=== PATIENT | male | born 1995 | race Hispanic/Latino ===

== ENCOUNTER 2019-01-21 11:34 | Emergency (ER) | payer BC ==
[2019-01-21 11:55] VITALS: RESP 16; O2SAT 100; BMI 26.5
--- NOTE | 2019-01-21 12:34 | ED PDOC ---
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 He states he was at [employer] working out when a medicine ball hit him the face. Patient states the ball bounced up and hit him and further reports that he did not bite his lips and the laceration occurred from just the ball hitting him in the area. According to patient's father, patient last tetanus shot was more than x5 years ago. Pt denies headache, LOC, changes in vision or other injuries PMD: Wan Sanders I Past Medical History Reviewed: Historical Data, Nursing Documentation, Vital Signs Vital Signs: Last Vital Signs Temp 97.6 F 01/21/19 11:54 Pulse 67 01/21/19 11:54 Resp 16 01/21/19 11:54 BP 130/77 01/21/19 11:54 Pulse Ox 100 01/21/19 11:54 Primary Care Provider: Wan Sanders I - Medical History PMH: Fractures (arm) - Surgical History Surgical History: No Surg Hx - Family History Family History: States: Unknown Family Hx - Allergies Allergies/Adverse Reactions: Allergies Allergy/AdvReac Type Severity Reaction Status Date / Time peanuts Allergy SWELLING Uncoded 01/21/19 11:56 Review of Systems ROS Statement: Except As Marked, All Systems Reviewed And Found Negative ENT: Positive for: Other (lip laceration ) Physical Exam - Reviewed Nursing Documentation Reviewed: Yes Vital Signs Reviewed: Yes - Physical Exam Appears: Positive for: Non-toxic, No Acute Distress Head Exam: Positive for: ATRAUMATIC, NORMOCEPHALIC Skin: Positive for: Normal Color, Warm, Dry Eye Exam: Positive for: Normal appearance, EOMI, PERRL ENT: Positive for: Other ((+) mucous membranes are intact; (+) inner smaller lip with an abrasian and outside of lower lip with a 1.5 cm superficial jagged laceration of vermilion lip (-) trysmus; dentition is intact ) - ECG O2 Sat by Pulse Oximetry: 100 (RA) Pulse Ox Interpretation: Normal Medical Decision Making Medical Decision Making: Time: 1230 Plan: --Tetanus 0.5 ml IM --Consult Dr. Lucas as per pt and family request for plastics preference due to location of lac Pt's father spoke to pt's mother who reports pt's tetanus is UTD last year, so will not give it here 18:40 laceration repair done by Dr. Lucas, recommends follow up in 1 week in his office Discussed diagnosis, treatment, return precautions and f/u with pt and parents who are understanding and in agreement, pt stable for dc Scribe Attestation: Documented by Maciel Fields, acting as a scribe for TIKI Castañeda. Provider Scribe Attestation: All medical record entries made by the Scribe were at my direction and personally dictated by me. I have reviewed the chart and agree that the record accurately reflects my personal performance of the history, physical exam, medical decision making, and the department course for this patient. I have also personally directed, reviewed, and agree with the discharge instructions and disposition. Disposition - Clinical Impression Clinical Impression: Laceration of lip - Patient ED Disposition Is Patient to be Admitted: No Counseled Patient/Family Regarding: Studies Performed, Diagnosis, Need For Followup - Disposition Referrals: Iglesia Lucas MD [Medical Doctor] - Disposition: Routine/Home Disposition Time: 18:49 Condition: STABLE Additional Instructions: Thank you for letting us take care of you today. Follow up with the doctor in 1 week. Keep wound clean and dry. The emergency medical care you received today was directed at your acute symptoms. If you were prescribed any medication, please fill it and take as directed. It may take several days for your symptoms to resolve. Return to the Emergency Department if your symptoms worsen, do not improve, or if you have any other problems. Please contact your doctor in 2 days for re-evaluation and follow up / or call one of the physicians/clinics you have been referred to that are listed on the Patient Visit Information form that is included in your discharge packet. Bring any paperwork you were given at discharge with you along with any medications you are taking to your follow up visit. Our treatment cannot replace ongoing medical care by a primary care provider (PCP) outside of the emergency department. Instructions: Wound Care, Laceration Repair With Stitches (DC) Print Language: KAZAKH - POA Present On Arrival: None
[2019-01-21 19:13] VITALS: BP 124/68; PULSE 72; TEMP 97.4
[2019-01-21] MEDS: Tdap Vaccine 0.5 ml Vial (10-64 yrs) IM ONE (19:14)
--- NOTE | 2019-01-23 03:35 | CON ---
DATE: 01/21/2019 EMERGENCY ROOM CONSULTATION SURGEON: Iglesia Lucas MD HISTORY OF PRESENT ILLNESS: This is a healthy 23-year-old male who hit his head and hit his lower lip while working out with some sort of ball at the gym. He sustained a 3-cm laceration to his lower lip across the vermilion border. The ER staffed consulted me as the plastic surgeon on-call for this complex wound. I came in to evaluate and treat the patient. PHYSICAL EXAMINATION: Central lower lip has a 3-cm laceration across the vermilion border involving the underlying orbicularis lindsey muscle. The intraoral mucosa had some contusion and mucosal lysis, but it was not [id number]. There were no other intraoral injuries, and his occlusion was normal. There were no signs of any facial fractures. ASSESSMENT AND PLAN: I explained to the patient and his parents there would be a scar and my job as a plastic surgeon was to minimize it. Risks and benefits were fully discussed, and all questions were answered. I will now dictate a separate operative report. Iglesia Lucas MD
--- NOTE | 2019-01-23 03:41 | OP ---
PROCEDURE DATE: 01/21/2019 PREOPERATIVE DIAGNOSIS: A 3-cm lower lip laceration across the vermilion border. POSTOPERATIVE DIAGNOSIS: A 3-cm lower lip laceration across the vermilion border. PROCEDURE PERFORMED: Complex repair of 3-cm central lower lip laceration across the vermilion border. SURGEON: Iglesia Lucas MD ANESTHESIA: Regional: 1. Left mental nerve block. 2. Right mental nerve block. INDICATIONS FOR THE PROCEDURE: As follows: Please refer to my separately dictated ER consultation for history and physical. DESCRIPTION OF PROCEDURE: As follows: Lidocaine 1% with 1:100,000 epinephrine was used in regional nerve block as listed above. After allowing sufficient time for the anesthetic to take effect, the wound was thoroughly irrigated with normal saline. Any retained debris was manually removed. The area was prepped and draped in the usual clean and sterile manner. I debrided the irregular skin edges with scissor technique. I used a 5-0 Monocryl to line up and approximate the orbicularis lindsey muscle in an interrupted fashion. I used a 5-0 Monocryl to line up and approximate the subcutaneous tissue and deep dermis in an interrupted fashion. I then closed the 3-cm laceration and lined up the vermilion border appropriately with a 6-0 Prolene in an interrupted fashion. After doing this, wound edges were nicely aligned. The patient tolerated the procedure well and eventually discharged home from the emergency room in stable condition. Postop wound care, limitation of physical activities, and the fact there will be a scar, the prognosis of which is unknown were discussed with the patient and his parents and all questions were answered. Iglesia Lucas MD
== END 2019-01-21 19:00 | disposition home or self-care (01) ==
LOC: H.ER 11:34
DX: S01.511A Laceration without foreign body of lip, initial encounter (principal); S09.90XA Unspecified injury of head, initial encounter; W21.00XA Struck by hit or thrown ball, unspecified type, initial encounter